=== PATIENT | male | born 1975 | race Caucasian/White ===

== ENCOUNTER 2023-10-01 23:24 | Emergency (ER) | payer BC ==
[2023-10-01] MEDS ORDERED: Lidocaine 1% 10 ML MDV INJECT ONE (23:27)
== END 2023-10-02 01:22 | disposition home or self-care (01) ==
LOC: JD.ED 23:24
DX: S61.217A Laceration without foreign body of left little finger without damage to nail, initial encounter (principal); W26.0XXA Contact with knife, initial encounter; Y93.G3 Activity, cooking and baking
CPT/HCPCS: 12001; 99282; J3490